=== PATIENT | male | born 1955 | race African-American/Black ===

== ENCOUNTER 2018-01-10 12:32 | Emergency (ER) | payer BC, OTHER ==
[~2018-01-10] VITALS: Ht 170.2 cm; Wt 72.6 kg
[~2018-01-10 12:32] MED LIST: BACTROBAN NASAL1 GM NASAL; KEFLEX500 MG ORAL; NKM
[2018-01-10 12:55] VITALS: BP 131/75
--- NOTE | 2018-01-10 13:04 | Emergency Room Report ---
History of Present Illness General Chief Complaint: Upper Extremity Injury Source: Patient Present Illness HPI patient is a 62-year-old male with no significant past medical history ear complaining of 3 weeks of left elbow pain post falling. Patient is rating the pain 3 out of 10, intermittent, exacerbated with lifting, has not taken any pain medication. Denies tingling/numbness/pain radiation. Denies chest pain, shortness of breath, palpitation.no previous imaging has been done Allergies: Coded Allergies: No Known Allergies (Unverified , 11/11/15) Patient History Past Medical History: see triage record Past Surgical History: unable to obtain Immunizations: UTD Reviewed Nursing Documentation: PMH: Agreed; PSxH: Agreed Nursing Documentation-PMH Past Medical History: No History, Except For Hx Cancer: Yes - Prostate CA Review of Systems All Other Systems: negative except mentioned in HPI Physical Exam Vital Signs Date Time Temp Pulse Resp B/P (MAP) Pulse Ox O2 Delivery O2 Flow Rate FiO2 01/10/18 12:47 98.2 61 14 131/75 98 Room Air 98.2 Sp02 EP Interpretation: reviewed, normal General Appearance: normal inspection, well appearing, no apparent distress, alert Head: normocephalic, atraumatic Eyes: bilateral eye normal inspection, bilateral eye PERRL ENT: normal ENT inspection, hearing grossly normal, normal pharynx Neck: normal inspection, full range of motion, supple Respiratory: normal inspection, chest non-tender, lungs clear, normal breath sounds, no rhonchi, no respiratory distress, no retraction Cardiovascular #1: normal inspection, normal peripheral pulses, regular rate, rhythm, no edema, no gallop, no murmur Gastrointestinal: normal inspection, soft Rectal: deferred Genitourinary: deferred Musculoskeletal: back normal, normal range of motion, non-tender, swelling - minimal swelling left olecranon bursa Neurologic: normal inspection, alert, oriented x3, responsive Psychiatric: normal inspection, judgement/insight normal Skin: normal inspection, normal color, no rash Lymphatic: normal inspection Medical Decision Making PA Attestation all diagnosis and treatment plans were reviewed and discussed with my supervising physician Diagnostic Impression: Primary Impression: Contusion of left elbow Additional Impression: Left elbow tendinitis ER Course patient is a 62-year-old male with no significant past medical history ear complaining of 3 weeks of left elbow pain post falling. Patient is rating the pain 3 out of 10, intermittent, exacerbated with lifting, has not taken any pain medication. Denies tingling/numbness/pain radiation. Denies chest pain, shortness of breath, palpitation.no previous imaging has been done Ddx considered but are not limited to elbow bursitis, elbow contusion, elbow fx Vital signs: are WNL, pt. is afebrile H&PE are most consistent with for bursitis, elbow contusion ORDERS: approximately 500 twice a day ED INTERVENTIONS: None required at this time. DISCHARGE: At this time pt. is stable for d/c to home. Will provide printed patient care instructions, and any necessary prescriptions. Care plan and follow up instructions have been discussed with the patient prior to discharge cyst treated for spastic post injury and patient is eliciting minimal pain no indication for x-ray at this point Last Vital Signs Date Time Temp Pulse Resp B/P (MAP) Pulse Ox O2 Delivery O2 Flow Rate FiO2 01/10/18 12:55 98.2 14 131/75 98 Room Air 98.2 01/10/18 12:47 61 Disposition: HOME, SELF-CARE Condition: Stable Scripts Naproxen* (NAPROXEN*) 500 Mg Tablet 500 MG ORAL TWICE A DAY, #30 TAB Prov: Tyshawn Fairbanks 01/10/18 Patient Instructions: Elbow Bursitis, Elbow Contusion, Obry-yp-Odmd Additional Instructions: ICE, HEAT, take NSAIDs as directed with food. follow up with pcp for physical therapy referral and possible MRI if tingling. ED precautions Tyshawn Fairbanks Jan 10, 2018 13:04
[2018-01-10] MEDS ORDERED: NAPROXEN500 M2 ORAL (13:05)
[2018-01-10 13:21] VITALS: BP 122/74
== END 2018-01-10 13:24 | disposition home or self-care (01) ==
LOC: EMR 13:01
DX: S50.02XA Contusion of left elbow, initial encounter (principal); W19.XXXA Unspecified fall, initial encounter; Y92.9 Unspecified place or not applicable; M77.9 Enthesopathy, unspecified; Z85.46 Personal history of malignant neoplasm of prostate
CPT/HCPCS: 99283

== ENCOUNTER 2018-11-30 10:11 | Emergency (ER) | payer OTHER ==
[~2018-11-30] VITALS: Ht 170.2 cm; Wt 59.0 kg
[~2018-11-30 10:11] MED LIST changes: +NAPROXEN500 M2 ORAL
[2018-11-30 10:26] VITALS: BP 141/87
--- NOTE | 2018-11-30 10:27 | NUR ---
ED Nurse Note: pt walked in to ED due to boil on right cheek since Sat. per pt, tried to drain out using needle. swelling noted. no redness or local fever noted. denies pain. AAO x 4. respirations even and non-labored noted. will wait for the further order.
--- NOTE | 2018-11-30 10:44 | Emergency Room Report ---
History of Present Illness General Chief Complaint: Skin Rash/Abscess Source: Patient Present Illness HPI Patient presents with complaints of lesion to the right upper facial area he noticed the region on Friday Reports that he poked it with a needle and also squeezed some material from the area this morning he felt that it had mildly improved however there is still present Fullness and presents to the ER denies any jaw pain or trismus denies any fevers or chills Allergies: Coded Allergies: No Known Allergies (Unverified , 11/11/15) Patient History Past Medical History: see triage record Pertinent Family History: none Reviewed Nursing Documentation: PMH: Agreed; PSxH: Agreed Nursing Documentation-PMH Past Medical History: No History, Except For Hx Cancer: Yes - Prostate CA Review of Systems All Other Systems: negative except mentioned in HPI Physical Exam Vital Signs Date Time Temp Pulse Resp B/P (MAP) Pulse Ox O2 Delivery O2 Flow Rate FiO2 11/30/18 10:16 98.1 62 18 141/87 (105) 97 Room Air Sp02 EP Interpretation: reviewed, normal General Appearance: well appearing, no apparent distress Head: normocephalic, atraumatic Eyes: bilateral eye PERRL, bilateral eye EOMI ENT: hearing grossly normal, normal pharynx Neck: full range of motion, supple Respiratory: lungs clear Cardiovascular #1: regular rate, rhythm Musculoskeletal: normal inspection Neurologic: alert, oriented x3, responsive Skin: other - Small approximately half by half centimeter fluctuant region on the right upper maxillary area the center area appears to be scabbing from previous instrumentation, Lymphatic: no adenopathy Medical Decision Making Diagnostic Impression: Primary Impression: Folliculitis ER Course Patient's clinical exam and findings are consistent with what appears to be folliculitis possible early small abscess also considered several attempts with antibiotics and soaking and may require further presentation for incision as needed otherwise stable for close outpatient follow-up Last Vital Signs Date Time Temp Pulse Resp B/P (MAP) Pulse Ox O2 Delivery O2 Flow Rate FiO2 11/30/18 10:26 98.1 62 18 141/87 97 Room Air Status: improved Disposition: HOME, SELF-CARE Condition: Stable Scripts Clindamycin Hcl (CLINDAMYCIN HCL) 300 Mg Capsule 300 MG ORAL THREE TIMES A DAY, #21 CAP Prov: Galdino Arizmendi DO 11/30/18 Referrals: NON PHYSICIAN (PCP) Additional Instructions: Patient is provided with the discharge instructions notified to follow up with primary doctor in the next 2-3 days otherwise return to the er with any worsening symptoms. Please note that this report is being documented using [employer] technology. This can lead to erroneous entry secondary to incorrect interpretation by the dictating instrument. Galdino Arizmendi DO Nov 30, 2018 10:44
[2018-11-30] MEDS ORDERED: CLINDAMYCIN HC300 MG ORAL (11:02)
[2018-11-30 11:06] VITALS: BP 140/80
--- NOTE | 2018-11-30 11:07 | NUR ---
ER DISCHARGE NOTE: Patient is cleared to be discharged per ERMD, pt is aox4, on room air, with stable vital signs. pt was given dc and prescription instructions, pt was able to verbalize understanding, pt id band removed. pt is able to ambulate with steady gait. pt took all belongings.
== END 2018-11-30 11:07 | disposition home or self-care (01) ==
LOC: EMR 10:40
DX: L73.9 Follicular disorder, unspecified (principal); Z85.46 Personal history of malignant neoplasm of prostate
CPT/HCPCS: 99282

== ENCOUNTER 2019-11-30 15:39 | Emergency (ER) | payer OTHER ==
[~2019-11-30] VITALS: Ht 180.3 cm; Wt 54.4 kg
[~2019-11-30 15:39] MED LIST changes: +CLINDAMYCIN HC300 MG ORAL
[2019-11-30 15:50] VITALS: BP 131/78
[2019-11-30 16:09] LABS: APPEARANCE,URINE CLEAR; BILIRUBIN, URINE NEGATIVE (NEGATIVE); COLOR,URINE PALE YELLOW; GLUCOSE, URINE (UA) NEGATIVE (NEGATIVE); KETONES,URINE NEGATIVE (NEGATIVE); LEUKOCYTE ESTERASE ,URINE 1+ (NEGATIVE); NITRITE,URINE NEGATIVE (NEGATIVE); PH,URINE 7 (4.5-8.0); PROTEIN,URINE NEGATIVE (NEGATIVE); UROBILINOGEN,URINE NORMAL MG/DL (0.0-1.0)
--- NOTE | 2019-11-30 16:25 | Emergency Room Report ---
History of Present Illness General Chief Complaint: Male Urogenital Problems Source: Patient Present Illness HPI 64-year-old male presents to the emergency department complaining of 5 out of 10 severity dysuria x1 week. Patient reports onset of his symptoms after having unprotected intercourse. Patient denies penile discharge, rashes, genital lesions, testicular pain or tenderness. Patient denies swollen tender lymph nodes or joint pain. He denies fevers or chills. He denies low back pain or abdominal pain/tenderness. He denies hematuria or urinary frequency. He denies constipation, diarrhea or rectal pain. Allergies: Coded Allergies: No Known Allergies (Unverified , 11/11/15) COVID-19 Screening Contact w/high risk pt: No Recent Travel to affected area: No Experienced COVID-19 symptoms?: No COVID-19 Testing performed AUDIO OPERATOR: No Patient History Past Medical History: see triage record Past Surgical History: none Pertinent Family History: none Reviewed Nursing Documentation: PMH: Agreed; PSxH: Agreed Nursing Documentation-PMH Past Medical History: No History, Except For Hx Cancer: Yes - Prostate CA Review of Systems All Other Systems: negative except mentioned in HPI Physical Exam Vital Signs Date Time Temp Pulse Resp B/P (MAP) Pulse Ox O2 Delivery O2 Flow Rate FiO2 11/30/19 15:50 98.1 82 16 131/78 96 Room Air Sp02 EP Interpretation: reviewed, normal General Appearance: no apparent distress, alert, GCS 15, non-toxic Head: normocephalic, atraumatic Eyes: bilateral eye normal inspection, bilateral eye PERRL ENT: hearing grossly normal, normal voice Neck: full range of motion Respiratory: lungs clear, normal breath sounds, speaking full sentences Cardiovascular #1: regular rate, rhythm Gastrointestinal: normal bowel sounds, non tender, soft, non-distended, no guarding Rectal: deferred Genitourinary: normal inspection, no CVA tenderness, penis normal, scrotum normal, other - NO rashes, no sores, no discharge Musculoskeletal: back normal, normal range of motion, gait/station normal, non- tender Neurologic: alert, motor strength/tone normal, oriented x3, sensory intact, responsive, speech normal Psychiatric: judgement/insight normal Skin: no rash Lymphatic: no adenopathy Medical Decision Making PA Attestation Dr. Arizmendi is my supervising Physician whom patient management has been discussed with. Diagnostic Impression: Primary Impression: Urethritis ER Course 64-year-old male presents to the emergency department complaining of 5 out of 10 severity dysuria x1 week. Patient reports onset of his symptoms after having unprotected intercourse. Patient denies penile discharge, rashes, genital lesions, testicular pain or tenderness. Patient denies swollen tender lymph nodes or joint pain. He denies fevers or chills. He denies low back pain or abdominal pain/tenderness. He denies hematuria or urinary frequency. He denies constipation, diarrhea or rectal pain. Ddx considered but are not limited to UTi , Urethritis, LGV, STI, Stone, Cystitis, prostatitis Elevator Examiner And Adjuster for PE was: TADEO Lawrence Vital signs: are WNL, pt. is afebrile H&PE are most consistent with Urethritis ORDERS: - UA : Most indicative of contamination: presence of equal amounts of bacteria and squamous cells, no elevation in inflammatory markers, nitrite negative. will send for reflex culture. ED INTERVENTIONS: -250mg Rocephin IM DISCHARGE: At this time pt. is stable for d/c to home. Will provide printed patient care instructions, and any necessary prescriptions. Care plan and follow up instructions have been discussed with the patient prior to discharge. Labs Test 11/30/19 16:00 Urine Color Pale yellow Urine Appearance Clear Urine pH 7 (4.5-8.0) Urine Specific [place] 1.010 (1.005-1.035) Urine Protein Negative (NEGATIVE) Urine Glucose (UA) Negative (NEGATIVE) Urine Ketones Negative (NEGATIVE) Urine Blood Negative (NEGATIVE) Urine Nitrite Negative (NEGATIVE) Urine Bilirubin Negative (NEGATIVE) Urine Urobilinogen Normal MG/DL (0.0-1.0) Urine Leukocyte Esterase 1+ (NEGATIVE) Urine RBC 2-4 /HPF (0 - 0) Urine WBC 2-4 /HPF (0 - 0) Urine Squamous Epithelial Cells Occasional /LPF Urine Bacteria Occasional /HPF (NONE) Last Vital Signs Date Time Temp Pulse Resp B/P (MAP) Pulse Ox O2 Delivery O2 Flow Rate FiO2 11/30/19 15:50 98.1 82 16 131/78 (95) 96 Room Air Disposition: HOME, SELF-CARE Condition: Stable Scripts Doxycycline Hyclate* (VIBRAMYCIN*) 100 Mg Capsule 100 MG ORAL EVERY 12 HOURS for 7 Days, #14 CAP 0 Refills Prov: Heather Soto 11/30/19 Referrals: Patric Ramirez. [facility] Patient Instructions: Urethritis, Adult, Urinary Tract Infection Additional Instructions: Take medications as directed. Follow up with a Primary Care Provider in 3-5 days For a referral to have UROLOGIST Evaluation, even if your symptoms have resolved. --Please review list of primary care clinics, if you do not already have a primary care provider Return sooner to ED if new symptoms occur, or current symptoms become worse. - Please note that this Emergency Department Report was dictated using [employer] she[employer] cutter technology software, occasionally this can lead to erroneous entry secondary to interpretation by the dictation equipment. Heather Soto Nov 30, 2019 16:25
[2019-11-30] MEDS ORDERED: VIBRAMYCIN100 MG ORAL (16:40)
[2019-11-30] MEDS ORDERED: Lidocaine 1% MPF 10mg/ml 5ml INJ ONE (16:45)
[2019-11-30 17:06] VITALS: BP 131/78
== END 2019-11-30 17:06 | disposition home or self-care (01) ==
LOC: EMR 16:00
DX: N34.2 Other urethritis (principal); Z85.46 Personal history of malignant neoplasm of prostate
CPT/HCPCS: 81003; 96372; 96374; 99284; J0696